=== PATIENT | female | born 1995 | race Caucasian/White ===

== ENCOUNTER 2017-07-15 08:04 | Emergency (ER) | payer OTHER, SELFPAY ==
[2017-07-15 08:05] VITALS: BP 127/66; PULSE 99; RESP 16; TEMP 36.6; O2SAT 98; BMI 24.5
--- NOTE | 2017-07-15 08:26 | ED.DEP ---
ED Disposition - Plan for ED Patient: Chief Complaint: Allergic Reaction Instructions: Oral Thrush Prescriptions: Nystatin 500,000 unit PO 4X/DAY #7 days Referrals: Care Physician,No Primary [Primary Care Provider] -
--- NOTE | 2017-07-15 08:41 | ED.DCSUM_ITS ---
- ER Visit Summary Date of Service: 07/15/17 Chief Complaint: Mouth irritation History of Present Illness: The patient is a 21 F presenting with mouth irritation since Sunday. On Sunday she woke up and had lip swelling. She thought that this was due to seasonal allergies. When it persisted on she went to urgent care. She states they tested her for strep and mono which were both negative. They diagnosed her with tonsillitis and put her on a Z-Raul and prednisone. She states the lip swelling has now improved. She has noticed white plaques in her mouth which wipe away and discoloration of her tongue. Denies fever or other complaints. Physical Examination: Vitals are stable. Patient is afebrile. Alert no acute distress. HEENT exam black discoloration posterior tongue Neck is supple. Lungs are clear and equal bilaterally. Heart is regular rate and rhythm. Extremities are unremarkable. Skin is warm and dry. No rash No focal neurologic deficit. Remainder of exam is unremarkable. Emergency Department Course and Treatment: Black discoloration is able to be wiped away with a toothbrush. She is given a prescription for nystatin. She is advised to follow-up with her primary care physician. Advised return to ED if worsening complaints. Disposition: Discharge home Impression: Tongue discoloration, thrush This note was generated with [employer] dictation software. It may contain incorrect words, spelling, and punctuation that were not noted in review of the chart prior to signing ED Disposition - Plan for ED Patient: Chief Complaint: Allergic Reaction Instructions: Oral Thrush Prescriptions: Nystatin 500,000 unit PO 4X/DAY #7 days Referrals: Care Physician,No Primary [Primary Care Provider] -
== END 2017-07-15 08:53 | disposition home or self-care (01) ==
PROVIDERS: Emergency Provider Emergency Medicine
DX: B37.0 Candidal stomatitis (principal)
CPT/HCPCS: 99282